=== PATIENT | female | born 1950 | race Caucasian/White ===

== ENCOUNTER 2016-07-20 17:16 | Emergency (ER) | payer OTHER ==
[2016-07-20 13:43] LABS: BASOPHILS 0.2 %; BASOPHILS ABSOLUTE 0.02 10/3/uL (0.0-0.16); EOSINOPHILS 2.3 %; EOSINOPHILS ABSOLUTE 0.19 10/3/uL (0.0-0.53); HEMOGLOBIN 11.5 g/dL (12.0-16.0); IMMATURE GRANULOCYTES 0.2 %; IMMATURE GRANULOCYTES ABSOLUTE 0.02 10/3/uL (0.0-0.11); LYMPHOCYTES 11.4 %; LYMPHOCYTES ABSOLUTE 0.95 10/3/uL (0.67-4.30); MEAN CORPUS HGB CONC 33.6 g/dL (32.0-36.0); MEAN CORPUSCULAR HEMOGLOB 27.9 pg (26.0-34.0); MEAN PLATELET VOLUME 8.9 fL (9.2-13.0); MONOCYTES 7.4 %; MONOCYTES ABSOLUTE 0.62 10/3/uL (0.21-1.20); NEUTROPHILS 78.5 %; NEUTROPHILS ABSOLUTE 6.56 10/3/uL (2.02-8.40); RBC DISTRIBUTION WIDTH 15.1 % (12.0-16.0); RED CELL COUNT 4.12 10/6/uL (4.0-5.6); WHITE BLOOD CELLS 8.4 10/3/uL (4.5-10.5)
[2016-07-20 13:45] LABS: HEMATOCRIT 34.2 % (36.0-48.0); MANUAL DIFF NO %; PLATELET COUNT 425 10/3/uL (150-400)
[2016-07-20 13:52] LABS: ASCORBIC ACID (UR NOT ORDER) NEG (NEG); BILIRUBIN, URINE NEGATIVE (NEG); ER URINALYSIS TAT 0 Hrs 00 Mins; KETONE, URINE NEGATIVE (NEG); LEUKOCYTE ESTERASE(NOT OR NEG (NEG); NITRITE (URINE) NEG (NEG); WBC (NOT ORDERED) (RFLEX) 1 (0-5)
[2016-07-20 14:01] LABS: A/G RATIO 0.9 (0.7-1.9); ALBUMIN 3.5 G/DL (3.5-5.0); ALKALINE PHOSPHATASE 35 U/L (45-117); BUN (BLOOD UREA NITROGEN) 10 MG/DL (6-23); CALCIUM, SERUM 9.2 MG/DL (8.5-10.4); CHLORIDE, SERUM 99 MMOL/L (96-112); CO2 (CARBON DIOXIDE) 28 MMOL/L (24-34); CREATININE 1.17 MG/DL (0.55-1.02); GFR AFRICAN AMERICAN 57 ML/MIN (>=60); GFR NON AFRICAN AMERICAN 50 ML/MIN (>=60); GLOBULIN 3.9 G/DL (2.5-4.1); GLUCOSE, SERUM 102 MG/DL (60-99); POTASSIUM, SERUM 3.6 MMOL/L (3.5-5.3); SGOT(AST) 18 U/L (5-40); SGPT(ALT) 22 U/L (5-65); SODIUM, SERUM 137 MMOL/L (135-148); TOTAL BILIRUBIN 0.7 MG/DL (0-1.2); TOTAL PROTEIN 7.4 G/DL (6.0-8.5)
[2016-07-20 14:38] LABS: ULTRASENSITIVE TSH 0.475 MCIU/ML (0.358-3.740)
[~2016-07-20 17:16] MED LIST: CETIRIZINE HCL5 MG PO; HYZAAR 100/25 T1 TAB PO; LIBRAX; LIBRAX PO; PREV30 PO; T PO; VIVELLE SY0.05 MG/24 TOP; WELLSR150 PO
== END 2016-07-20 18:25 | disposition home or self-care (01) ==
LOC: ER 17:16
PROVIDERS: Emergency Medicine
DX: K57.32 Diverticulitis of large intestine without perforation or abscess without bleeding (principal); K58.9 Irritable bowel syndrome, unspecified; Z88.0 Allergy status to penicillin; Z88.8 Allergy status to other drugs, medicaments and biological substances; Z79.899 Other long term (current) drug therapy
CPT/HCPCS: 74176; 80053; 81001; 83690; 84443; 85025; 96374; 99284; A9270-GY; J2405

== ENCOUNTER 2016-07-24 02:32 | Inpatient (IN) | payer OTHER ==
--- NOTE | ~2016-07-24 | DS ---
Discharge Summary [facility] [address] [place]. [address] NAME: TIMMY RODRIGUEZ : 54 STATUS : DIS IN PAT#: [id number] AGE: 65 ADM/REG DATE : 07/24/16 MR#: [id number] REPORT SERV DATE: 07/28/16 DICTATED BY: JORGE ALBERTO WESTFALL DATE: 07/27/16 REPORT STATUS : Draft TRANSCRIBED BY: KRISTINE DATE: 07/27/16 ADMISSION DATE: 07/24/2016 DISCHARGE DATE: 07/27/2016 PROCEDURES DONE: On 07/24/2016 CT abdomen and pelvis with contrast: Ongoing sigmoid diverticulitis. No significant of any marked complication identified. REASON FOR ADMISSION: Persistent diverticulitis. HISTORY OF HOSPITAL STAY: A 65-year-old white female with past medical history of hypertension, GERD, depression, diverticulitis, presenting with persistent diverticulitis. The patient recently underwent colonoscopy and subsequently developed on 07/20/[address] scan. The patient was given Levaquin and Flagyl for treatment. However, after two days of taking the medications of Levaquin and Flagyl the patient started having nausea and vomiting. The patient was unable to take her medications to complete her course. Hence, the patient came to the ER for further evaluation and treatment, and subsequently was admitted. On further questioning, the patient did not have any change in p.o. intake or bowel habits. The patient was started on IV Levaquin and Flagyl, but unfortunately started having nausea. Levaquin was D/C'd and switched to cefepime which helped with her nausea. Therefore, the patient was started on Omnicef and then changed the IV Flagyl to p.o. Flagyl. The patient was able to tolerate p.o. intake and able to mobilize. Therefore, the patient will continue 10 days worth of Omnicef 300 mg p.o. b.i.d., dispensed 20, as well as Flagyl 500 mg p.o. t.i.d. dispensed 30 with Zofran 4 mg ODT t.i.d. p.r.n. dispensed 21. DISPOSITION: The patient is feeling fine, no complaints. ACTIVITY: As tolerated. DIET: Cardiac. INSTRUCTIONS UPON DISCHARGE: The patient is to follow up with PMD within one to two weeks' time. MEDICATIONS UPON DISCHARGE: 1. Zofran 4 mg ODT p.o. t.i.d. p.r.n. 2. Omnicef 300 mg p.o. b.i.d., dispensed 20. 3. Flagyl 500 mg p.o. t.i.d., dispense 30. 4. Bupropion 150 mg p.o. daily. 5. Zyrtec 5 mg p.o. daily. 6. Prevacid 30 mg p.o. daily. 7. Librax unknown strength and unknown frequency. 8. Hyzaar 100/25 mg p.o. daily. 9. Estradiol 0.05 mg topical twice a week. 10.Tylenol 650 mg p.o. q.6 p.r.n. Discharge Summary [address] [place]. [address] NAME: TIMMY RODRIGUEZ : 54 STATUS : DIS IN PAT#: [id number] AGE: 65 ADM/REG DATE : 07/24/16 MR#: [id number] REPORT SERV DATE: 07/28/16 DICTATED BY: JORGE ALBERTO WESTFALL DATE: 07/27/16 REPORT STATUS : Draft TRANSCRIBED BY: KRISTINE DATE: 07/27/16 DIAGNOSES ON DISCHARGE: 1. Persistent diverticulitis. 2. Hypertension. 3. Gastroesophageal reflux disease. 4. Depression. LIANA/KRISTINE Jorge Alberto Westfall MD / [id number] CC: MD Micah Santiago DO
--- NOTE | ~2016-07-24 | HP ---
History And Physical [facility] [address] [place]. [address] NAME: TIMMY RODRIGUEZ : 54 STATUS : ADM IN [facility]#: [id number] AGE: 65 ADM/REG DATE : 07/24/16 MR#: [id number] REPORT SERV DATE: 07/24/16 DICTATED BY: MARIANA HAN DATE: 07/24/16 REPORT STATUS : Draft TRANSCRIBED BY: MODL DATE: 07/24/16 DATE OF ADMISSION: 07/24/2016 CHIEF COMPLAINT: A 65-year-old female, presenting with persistent diverticulitis. HISTORY OF PRESENTING ILLNESS: The patient's history was obtained through careful interview with the patient and , coupled with review of [facility] and [facility] medical records. The patient on 06/08/2016 underwent a colonoscopy under the care of Dr. Moy for screening because of family history of colon cancer. The colonoscopy showed some diverticulosis, but no other major abnormalities. After the colonoscopy, the patient had some abdominal pain, but she did not think much of it as she prepared to go on a cruise. While on a nine-day cruise to [facility] and [facility] and other [facility], she had increasing abdominal pain. While on a cruise, she was diagnosed with a "urinary tract infection and constipation" and was given some antibiotics, but never really improved. She has been ill through most of June. Finally on 07/20/2016, she went to the emergency department, was diagnosed with diverticulitis by CT scan. Place on outpatient ciprofloxacin and Flagyl, but it has not helped her condition at all. She describes left lower quadrant abdominal pain, a cramping quality, 8/10 severity that is constant. She has had nausea and vomiting. No diarrhea. No shortness of breath. No chest pain. No light headedness. She has had fevers and chills. Temperature is recently measured up to 101 to 102.0. REVIEW OF SYSTEMS: Otherwise, a 14-point review of systems was obtained and was negative. PAST MEDICAL HISTORY: 1. Hypertension. 2. Gastroesophageal reflux disorder. 3. Depression. 4. Diverticulitis. 5. No cardiac disease, no lung disease. PAST SURGICAL HISTORY: 1. Hysterectomy. 2. Left wrist surgery. 3. Hemorrhoidectomy. 4. Cholecystectomy. ALLERGIES: PENICILLIN AND VALIUM. History And Physical [facility] [address] [place]. [address] NAME: TIMMY RODRIGUEZ : 54 STATUS : ADM IN [facility]#: [id number] AGE: 65 ADM/REG DATE : 07/24/16 MR#: [id number] REPORT SERV DATE: 07/24/16 DICTATED BY: MARIANA HAN DATE: 07/24/16 REPORT STATUS : Draft TRANSCRIBED BY: KRISTINE DATE: 07/24/16 SOCIAL HISTORY: Quit smoking four years ago. No alcohol abuse. She is , has four children, works in customer service, lives in [place], [place]. She works for [employer], a [employer]. FAMILY HISTORY: Father with liver cancer. Mother with colon cancer. CURRENT MEDICATIONS: Include Tylenol p.r.n., Wellbutrin SR 150 mg p.o. daily, Zyrtec 5 mg p.o. daily, Librax capsules, estradiol, Prevacid 30 mg p.o. daily, Hyzaar 100/25 p.o. daily. PHYSICAL EXAMINATION: VITAL SIGNS: Temperature 97.5, pulse 112, blood pressure 119/69, respiratory rate 18, and O2 saturation 99% on room air. GENERAL: A pleasant, cooperative female, but described in distress secondary to nausea and abdominal pain. HEENT: Pupils equal, round, and reactive to light. No conjunctival pallor. No scleral icterus. Nares are patent. Oropharynx is clear of obstruction. Dry mucous membranes. NECK: Trachea midline. No thyromegaly. LYMPH: No cervical lymphadenopathy. No supraclavicular lymphadenopathy. No inguinal lymphadenopathy. RESPIRATORY: Clear to auscultation at bases. No wheezes, rales, or rhonchi. Normal respiratory effort. CARDIOVASCULAR: Tachycardic, regular rhythm. No murmurs, rubs, or gallops. No extremity edema is appreciated. ABDOMEN: Significant left lower quadrant abdominal pain. No rebound. No guarding. Nondistended active bowel tones. No hepatosplenomegaly. DERMATOLOGICAL: Warm and dry extremities. No pallor. No cyanosis. PSYCHIATRIC: Normal affect. Good mood. Alert and oriented x3. LABORATORY DATA: White blood cell count 6.9, hemoglobin 12, hematocrit 35, platelets 389. Sodium 139, potassium 3.5, chloride 101, bicarbonate 26, BUN 12, creatinine 1.18 from baseline creatinine of 0.8, glucose 163. Urinalysis negative for infection, but shows 7 hyaline casts, lipase 112. Liver enzymes within normal limits. STUDIES: CT scan of the abdomen shows diverticulitis. ASSESSMENT AND PLAN: 1. Acute diverticulitis "failed" outpatient Cipro and Flagyl. Place on IV antibiotics, IV narcotic pain management secondary to severe pain with intractable nausea and vomiting. 2. Acute kidney injury. Place on IV fluids. Hold hydrochlorothiazide. 3. Hyperglycemia. Check hemoglobin A1c. Place on sliding scale insulin. 4. Hypokalemia. Replace. Check magnesium. KPL/MODAlice Mariana Damon History And Physical [address] [address] NAME: TIMMY RODRIGUEZ : 54 STATUS : ADM IN [facility]#: [id number] AGE: 65 ADM/REG DATE : 07/24/16 MR#: [id number] REPORT SERV DATE: 07/24/16 DICTATED BY: MARIANA HAN DATE: 07/24/16 REPORT STATUS : Draft TRANSCRIBED BY: KRISTINE DATE: 07/24/16 Hollie Han / [id number] CC: MD AARON Santiago,JM Moy M.D.
[2016-07-24 01:27] LABS: BASOPHILS 0.1 %; BASOPHILS ABSOLUTE 0.01 10/3/uL (0.0-0.16); EOSINOPHILS 0.9 %; EOSINOPHILS ABSOLUTE 0.06 10/3/uL (0.0-0.53); ER CBC TAT 0 Hrs 04 MinsNP; HEMATOCRIT 34.9 % (36.0-48.0); HEMOGLOBIN 11.8 g/dL (12.0-16.0); IMMATURE GRANULOCYTES 0.3 %; IMMATURE GRANULOCYTES ABSOLUTE 0.02 10/3/uL (0.0-0.11); LYMPHOCYTES 8.6 %; LYMPHOCYTES ABSOLUTE 0.59 10/3/uL (0.67-4.30); MANUAL DIFF NO %; MEAN CORPUS HGB CONC 33.8 g/dL (32.0-36.0); MEAN CORPUSCULAR HEMOGLOB 27.7 pg (26.0-34.0); MEAN CORPUSCULAR VOLUME 81.9 fL (80-100); MEAN PLATELET VOLUME 8.8 fL (9.2-13.0); MONOCYTES 5.2 %; MONOCYTES ABSOLUTE 0.36 10/3/uL (0.21-1.20); NEUTROPHILS 84.9 %; NEUTROPHILS ABSOLUTE 5.82 10/3/uL (2.02-8.40); PLATELET COUNT 389 10/3/uL (150-400); RBC DISTRIBUTION WIDTH 14.6 % (12.0-16.0); RED CELL COUNT 4.26 10/6/uL (4.0-5.6); WHITE BLOOD CELLS 6.9 10/3/uL (4.5-10.5)
[2016-07-24 01:38] LABS: ASCORBIC ACID (UR NOT ORDER) NEG (NEG); BILIRUBIN, URINE NEGATIVE (NEG); ER URINALYSIS TAT 0 Hrs 10 Mins; KETONE, URINE 80 MG/DL (NEG); LEUKOCYTE ESTERASE(NOT OR SMALL (NEG); NITRITE (URINE) NEG (NEG); WBC (NOT ORDERED) (RFLEX) 3 (0-5)
[2016-07-24 01:54] LABS: A/G RATIO 0.8 (0.7-1.9); ALBUMIN 3.1 G/DL (3.5-5.0); ALKALINE PHOSPHATASE 36 U/L (45-117); BUN (BLOOD UREA NITROGEN) 12 MG/DL (6-23); CALCIUM, SERUM 8.9 MG/DL (8.5-10.4); CHLORIDE, SERUM 101 MMOL/L (96-112); CO2 (CARBON DIOXIDE) 26 MMOL/L (24-34); CREATININE 1.18 MG/DL (0.55-1.02); GFR AFRICAN AMERICAN 57 ML/MIN (>=60); GFR NON AFRICAN AMERICAN 49 ML/MIN (>=60); GLOBULIN 3.8 G/DL (2.5-4.1); GLUCOSE, SERUM 163 MG/DL (60-99); POTASSIUM, SERUM 3.5 MMOL/L (3.5-5.3); SGOT(AST) 15 U/L (5-40); SGPT(ALT) 21 U/L (5-65); SODIUM, SERUM 139 MMOL/L (135-148); TOTAL BILIRUBIN 0.4 MG/DL (0-1.2); TOTAL PROTEIN 6.9 G/DL (6.0-8.5)
[2016-07-24 08:48] LABS: POTASSIUM, SERUM 3.5 MMOL/L (3.5-5.3)
[2016-07-24 12:12] LABS: BASOPHILS 0.4 %; BASOPHILS ABSOLUTE 0.02 10/3/uL (0.0-0.16); EOSINOPHILS 2.1 %; EOSINOPHILS ABSOLUTE 0.12 10/3/uL (0.0-0.53); HEMATOCRIT 30.4 % (36.0-48.0); HEMOGLOBIN 10.2 g/dL (12.0-16.0); IMMATURE GRANULOCYTES 0.2 %; IMMATURE GRANULOCYTES ABSOLUTE 0.01 10/3/uL (0.0-0.11); LYMPHOCYTES 23.7 %; LYMPHOCYTES ABSOLUTE 1.35 10/3/uL (0.67-4.30); MEAN CORPUS HGB CONC 33.6 g/dL (32.0-36.0); MEAN CORPUSCULAR HEMOGLOB 27.6 pg (26.0-34.0); MEAN CORPUSCULAR VOLUME 82.2 fL (80-100); MEAN PLATELET VOLUME 8.6 fL (9.2-13.0); MONOCYTES 7.2 %; MONOCYTES ABSOLUTE 0.41 10/3/uL (0.21-1.20); NEUTROPHILS 66.4 %; NEUTROPHILS ABSOLUTE 3.78 10/3/uL (2.02-8.40); PLATELET COUNT 368 10/3/uL (150-400); RBC DISTRIBUTION WIDTH 14.6 % (12.0-16.0); WHITE BLOOD CELLS 5.7 10/3/uL (4.5-10.5)
[2016-07-24 12:13] LABS: MANUAL DIFF NO %
[2016-07-24 12:19] LABS: INTERNATIONAL NORMAL RATI 1.5 UNITS (-); PARTIAL THROMBO TIME 46.3 SEC (22.5-37.2); PROTIME (NOT ORD) 17.6 SEC (12.0-14.5)
[2016-07-24 12:37] LABS: A/G RATIO 0.9 (0.7-1.9); ALBUMIN 2.9 G/DL (3.5-5.0); BUN (BLOOD UREA NITROGEN) 9 MG/DL (6-23); CALCIUM, SERUM 8.3 MG/DL (8.5-10.4); CHLORIDE, SERUM 105 MMOL/L (96-112); CO2 (CARBON DIOXIDE) 25 MMOL/L (24-34); CREATININE 0.94 MG/DL (0.55-1.02); GFR AFRICAN AMERICAN 75 ML/MIN (>=60); GFR NON AFRICAN AMERICAN 65 ML/MIN (>=60); GLOBULIN 3.1 G/DL (2.5-4.1); PHOSPHORUS, SERUM 2.4 MG/DL (2.5-4.5); POTASSIUM, SERUM 3.4 MMOL/L (3.5-5.3); SGOT(AST) 10 U/L (5-40); SGPT(ALT) 16 U/L (5-65); SODIUM, SERUM 140 MMOL/L (135-148); TOTAL BILIRUBIN 0.3 MG/DL (0-1.2)
[2016-07-24 12:40] LABS: ALKALINE PHOSPHATASE 25 U/L (45-117); GLUCOSE, SERUM 88 MG/DL (60-99)
[2016-07-25 05:03] LABS: BASOPHILS 0.3 %; BASOPHILS ABSOLUTE 0.02 10/3/uL (0.0-0.16); EOSINOPHILS ABSOLUTE 0.15 10/3/uL (0.0-0.53); HEMATOCRIT 29.8 % (36.0-48.0); IMMATURE GRANULOCYTES 0.1 %; IMMATURE GRANULOCYTES ABSOLUTE 0.01 10/3/uL (0.0-0.11); MEAN CORPUS HGB CONC 33.6 g/dL (32.0-36.0); MEAN CORPUSCULAR HEMOGLOB 27.8 pg (26.0-34.0); MEAN CORPUSCULAR VOLUME 82.8 fL (80-100); MEAN PLATELET VOLUME 8.9 fL (9.2-13.0); MONOCYTES 8.1 %; MONOCYTES ABSOLUTE 0.62 10/3/uL (0.21-1.20); NEUTROPHILS 76.5 %; NEUTROPHILS ABSOLUTE 5.87 10/3/uL (2.02-8.40); PLATELET COUNT 386 10/3/uL (150-400); RBC DISTRIBUTION WIDTH 14.7 % (12.0-16.0); WHITE BLOOD CELLS 7.7 10/3/uL (4.5-10.5)
[2016-07-25 05:09] LABS: MANUAL DIFF NO %
[2016-07-25 05:15] LABS: A/G RATIO 0.9 (0.7-1.9); ALBUMIN 2.6 G/DL (3.5-5.0); ALKALINE PHOSPHATASE 27 U/L (45-117); BUN (BLOOD UREA NITROGEN) 9 MG/DL (6-23); CALCIUM, SERUM 8.1 MG/DL (8.5-10.4); CHLORIDE, SERUM 107 MMOL/L (96-112); CO2 (CARBON DIOXIDE) 24 MMOL/L (24-34); CREATININE 1.01 MG/DL (0.55-1.02); GFR AFRICAN AMERICAN 69 ML/MIN (>=60); GFR NON AFRICAN AMERICAN 59 ML/MIN (>=60); GLUCOSE, SERUM 108 MG/DL (60-99); PHOSPHORUS, SERUM 3.2 MG/DL (2.5-4.5); POTASSIUM, SERUM 3.9 MMOL/L (3.5-5.3); SGOT(AST) 19 U/L (5-40); SGPT(ALT) 14 U/L (5-65); SODIUM, SERUM 142 MMOL/L (135-148); TOTAL BILIRUBIN 0.2 MG/DL (0-1.2); TOTAL PROTEIN 5.6 G/DL (6.0-8.5)
[2016-07-26 05:19] LABS: BASOPHILS 0.3 %; BASOPHILS ABSOLUTE 0.02 10/3/uL (0.0-0.16); EOSINOPHILS 2.1 %; EOSINOPHILS ABSOLUTE 0.12 10/3/uL (0.0-0.53); HEMATOCRIT 28.7 % (36.0-48.0); HEMOGLOBIN 9.5 g/dL (12.0-16.0); IMMATURE GRANULOCYTES 0.2 %; IMMATURE GRANULOCYTES ABSOLUTE 0.01 10/3/uL (0.0-0.11); LYMPHOCYTES 19.8 %; LYMPHOCYTES ABSOLUTE 1.15 10/3/uL (0.67-4.30); MEAN CORPUS HGB CONC 33.1 g/dL (32.0-36.0); MEAN CORPUSCULAR HEMOGLOB 27.3 pg (26.0-34.0); MEAN CORPUSCULAR VOLUME 82.5 fL (80-100); MEAN PLATELET VOLUME 8.8 fL (9.2-13.0); MONOCYTES 10.5 %; MONOCYTES ABSOLUTE 0.61 10/3/uL (0.21-1.20); NEUTROPHILS 67.1 %; NEUTROPHILS ABSOLUTE 3.91 10/3/uL (2.02-8.40); PLATELET COUNT 345 10/3/uL (150-400); RBC DISTRIBUTION WIDTH 15.2 % (12.0-16.0); RED CELL COUNT 3.48 10/6/uL (4.0-5.6); WHITE BLOOD CELLS 5.8 10/3/uL (4.5-10.5)
[2016-07-26 05:20] LABS: MANUAL DIFF NO %
[2016-07-26 05:33] LABS: A/G RATIO 0.9 (0.7-1.9); ALBUMIN 2.6 G/DL (3.5-5.0); ALKALINE PHOSPHATASE 27 U/L (45-117); BUN (BLOOD UREA NITROGEN) 5 MG/DL (6-23); CALCIUM, SERUM 8.3 MG/DL (8.5-10.4); CHLORIDE, SERUM 106 MMOL/L (96-112); CO2 (CARBON DIOXIDE) 27 MMOL/L (24-34); CREATININE 0.93 MG/DL (0.55-1.02); GFR AFRICAN AMERICAN 76 ML/MIN (>=60); GFR NON AFRICAN AMERICAN 65 ML/MIN (>=60); GLOBULIN 2.9 G/DL (2.5-4.1); GLUCOSE, SERUM 94 MG/DL (60-99); PHOSPHORUS, SERUM 4.1 MG/DL (2.5-4.5); POTASSIUM, SERUM 3.4 MMOL/L (3.5-5.3); SGOT(AST) 10 U/L (5-40); SGPT(ALT) 13 U/L (5-65); SODIUM, SERUM 141 MMOL/L (135-148); TOTAL BILIRUBIN 0.3 MG/DL (0-1.2); TOTAL PROTEIN 5.5 G/DL (6.0-8.5)
[2016-07-27 06:19] LABS: BASOPHILS 0.3 %; BASOPHILS ABSOLUTE 0.02 10/3/uL (0.0-0.16); EOSINOPHILS ABSOLUTE 0.18 10/3/uL (0.0-0.53); HEMATOCRIT 30.4 % (36.0-48.0); IMMATURE GRANULOCYTES 0.2 %; IMMATURE GRANULOCYTES ABSOLUTE 0.01 10/3/uL (0.0-0.11); LYMPHOCYTES 21.6 %; LYMPHOCYTES ABSOLUTE 1.31 10/3/uL (0.67-4.30); MEAN CORPUS HGB CONC 32.9 g/dL (32.0-36.0); MEAN CORPUSCULAR HEMOGLOB 27.2 pg (26.0-34.0); MEAN CORPUSCULAR VOLUME 82.6 fL (80-100); MEAN PLATELET VOLUME 8.9 fL (9.2-13.0); MONOCYTES 8.3 %; NEUTROPHILS 66.6 %; NEUTROPHILS ABSOLUTE 4.04 10/3/uL (2.02-8.40); PLATELET COUNT 377 10/3/uL (150-400); RBC DISTRIBUTION WIDTH 15.4 % (12.0-16.0); RED CELL COUNT 3.68 10/6/uL (4.0-5.6); WHITE BLOOD CELLS 6.1 10/3/uL (4.5-10.5)
[2016-07-27 06:25] LABS: MANUAL DIFF NO %
[2016-07-27 06:43] LABS: A/G RATIO 0.8 (0.7-1.9); ALBUMIN 2.7 G/DL (3.5-5.0); ALKALINE PHOSPHATASE 26 U/L (45-117); BUN (BLOOD UREA NITROGEN) 6 MG/DL (6-23); CALCIUM, SERUM 8.8 MG/DL (8.5-10.4); CHLORIDE, SERUM 106 MMOL/L (96-112); CO2 (CARBON DIOXIDE) 25 MMOL/L (24-34); GFR AFRICAN AMERICAN 79 ML/MIN (>=60); GFR NON AFRICAN AMERICAN 68 ML/MIN (>=60); GLOBULIN 3.3 G/DL (2.5-4.1); GLUCOSE, SERUM 103 MG/DL (60-99); PHOSPHORUS, SERUM 3.9 MG/DL (2.5-4.5); POTASSIUM, SERUM 3.7 MMOL/L (3.5-5.3); SGOT(AST) 15 U/L (5-40); SGPT(ALT) 11 U/L (5-65); SODIUM, SERUM 143 MMOL/L (135-148); TOTAL BILIRUBIN 0.4 MG/DL (0-1.2)
[2016-07-27] MEDS ORDERED: OMNICEF300 PO (16:26)
[2016-07-27] MEDS ORDERED: FLAG500TAB PO (16:29)
== END 2016-07-27 17:23 | disposition home or self-care (01) | DRG 392 ==
LOC: ER 02:32 → 2SO 05:18
PROVIDERS: Hospitalist
DX: K57.32 Diverticulitis of large intestine without perforation or abscess without bleeding (principal); N17.9 Acute kidney failure, unspecified; I10 Essential (primary) hypertension; K21.9 Gastro-esophageal reflux disease without esophagitis; E86.0 Dehydration; F32.9 Major depressive disorder, single episode, unspecified; R73.9 Hyperglycemia, unspecified; E87.6 Hypokalemia; Z98.890 Other specified postprocedural states; Z88.0 Allergy status to penicillin; Z88.5 Allergy status to narcotic agent; Z84.89 Family history of other specified conditions; Z80.8 Family history of malignant neoplasm of other organs or systems; Z80.0 Family history of malignant neoplasm of digestive organs
CPT/HCPCS: 74177; 80053; 81001; 83036; 83690; 83735; 84100; 84132; 84443; 85025; 85610; 85730; 87086; 96374; 96375; 99285; A9270-GY; C9113; J0692; J1956; J2405; Q9967